=== PATIENT | female | born 1980 | race Caucasian/White ===

== ENCOUNTER 2022-06-17 18:45 | Emergency (ER) | payer OTHER ==
[2022-06-17] MEDS ORDERED: NORCO 5-325 TA1 EACH PO (21:52)
== END 2022-06-17 22:15 | disposition home or self-care (01) ==
LOC: FER 18:45
DX: S52.121A Displaced fracture of head of right radius, initial encounter for closed fracture (principal); S63.501A Unspecified sprain of right wrist, initial encounter; I10 Essential (primary) hypertension; W18.09XA Striking against other object with subsequent fall, initial encounter; Y92.89 Other specified places as the place of occurrence of the external cause; Y99.0 Civilian activity done for income or pay
CPT/HCPCS: 73080; 73110